=== PATIENT | male | born 1970 | race African-American/Black ===

== ENCOUNTER 2017-05-01 08:50 | Inpatient (IN) | payer MEDICAID, OTHER ==
[~2017-05-01] VITALS: Ht 170.2 cm; Wt 69.4 kg
[2017-05-01] MEDS ORDERED: PANTOPRAZOLE SODIUM 40 MG/VIAL IV STA (10:10)
[2017-05-01] MEDS ORDERED: SODIUM CHLORIDE 0.9% 1,000 ML IV ONE (10:10)
[2017-05-01] MEDS ORDERED: PANTOPRAZOLE 80 MG in SODIUM CHLORIDE 0.9% 100 ML IV STA (10:10)
[2017-05-01 10:41] LABS: BASOPHILS % 0.2 % (0.0-2.0); EOSINOPHILS % 1.7 % (0.0-5.0); HEMATOCRIT. 43.9 % (42.0-52.0); HEMOGLOBIN. 14.7 g/dL (14.0-18.0); MEAN CORPUSCULAR HEMOGLOBIN 28.7 pg (28.0-32.0); MEAN PLATELET VOLUME 9.3 fl (7.4-10.4); MONOCYTES % 10.8 % (2.0-8.0); NEUTROPHILS % 55.3 % (40.0-76.0); PLATELET 304 x1000/uL (130-400); RED BLOOD CELL COUNT 5.11 mill/uL (4.7-6.1); RED CELL DISTRIBUTION WIDTH 13.2 % (11.6-14.6)
[2017-05-01 10:47] LABS: INR 1.1; PARTIAL THROMBOPLASTIN TIME 26.6 sec (23.4-31.0); PROTHROMBIN TIME 11.1 sec (9.4-11.6)
[2017-05-01 10:56] LABS: CHLORIDE 91 mEq/L (98-107); TROPONIN I < 0.02 ng/mL (0.00-0.04)
[2017-05-01] MEDS ORDERED: ACETAMINOPHEN 325MG TABLET PO PRN (11:45)
[2017-05-01] MEDS ORDERED: HYDROCODONE/ACETAMINOPHEN 5/325MG TABLET PO PRN (11:45)
[2017-05-01] MEDS ORDERED: ONDANSETRON HCL 4MG/2ML VIAL IV PRN (11:45)
[2017-05-01] MEDS ORDERED: IPRATROPIUM/ALBUTEROL 0.5-3(2.5)MG/3ML NEB INH PRN (11:45)
[2017-05-01] MEDS ORDERED: DIPHENHYDRAMINE 50MG/ML VIAL IV PRN (11:45)
[2017-05-01] MEDS ORDERED: CLONIDINE 0.1MG TABLET PO PRN (11:45)
[2017-05-01 12:15] VITALS: BP 155/99
[2017-05-01 16:08] VITALS: BP 120/85
[2017-05-01 19:23] LABS: HEMATOCRIT 39.6 % (42.0-52.0)
[2017-05-01 20:00] VITALS: BP 128/62
[2017-05-01 22:00] VITALS: BP 118/62
[2017-05-02] VITALS: BP 126/64
[2017-05-02 02:00] VITALS: BP 130/72
[2017-05-02 04:00] VITALS: BP 142/64
[2017-05-02 06:00] VITALS: BP 152/68
[2017-05-02 07:06] LABS: BASOPHILS % 1.5 % (0.0-2.0); EOSINOPHILS % 2.4 % (0.0-5.0); HEMATOCRIT. 39.9 % (42.0-52.0); HEMOGLOBIN. 13.3 g/dL (14.0-18.0); LYMPHOCYTES % 43.3 % (20.0-50.0); MEAN CORPUSCULAR HEMOGLOBIN 28.5 pg (28.0-32.0); MEAN CORPUSCULAR VOLUME 85.6 fL (80.0-94.0); MONOCYTES % 11.8 % (2.0-8.0); PLATELET 257 x1000/uL (130-400); RED BLOOD CELL COUNT 4.66 mill/uL (4.7-6.1); RED CELL DISTRIBUTION WIDTH 13.3 % (11.6-14.6)
[2017-05-02 08:11] VITALS: BP 130/81
[2017-05-02 08:18] LABS: CHLORIDE 96 mEq/L (98-107)
[2017-05-02 08:28] LABS: HDL CHOLESTEROL 32 mg/dL (40-59); LDL CHOLESTEROL 119 mg/dL (5-100)
[2017-05-02] MEDS ORDERED: PANTOPRAZOLE SODIUM 40 MG/VIAL IV SCH (09:00)
[2017-05-02 12:31] VITALS: BP 139/91
== END 2017-05-02 14:00 | disposition home or self-care (01) | DRG 253 ==
LOC: ER 09:48 → ENRESERV 11:43 → 6WST 12:08
PROVIDERS: ADMIT Internal Medicine; ATTEND Internal Medicine
DX: K92.2 Gastrointestinal hemorrhage, unspecified (principal); E87.1 Hypo-osmolality and hyponatremia; I10 Essential (primary) hypertension; K92.0 Hematemesis; F32.9 Major depressive disorder, single episode, unspecified; F17.210 Nicotine dependence, cigarettes, uncomplicated; F12.90 Cannabis use, unspecified, uncomplicated; F43.10 Post-traumatic stress disorder, unspecified; K59.00 Constipation, unspecified
CPT/HCPCS: 36415; 71045; 74176; 80053; 80061; 83690; 84484; 85014; 85018; 85025; 85610; 85730; 86850; 86900; 93005; 96365; 96375; 99285; C9113; J7030; J7050

== ENCOUNTER 2021-10-18 02:23 | Inpatient (IN) | payer OTHER ==
[~2021-10-18] VITALS: Ht 170.2 cm; Wt 63.1 kg
[2021-10-18 08:47] LABS: BASOPHILS % 0.9 % (0.0-2.0); EOSINOPHILS % 0.8 % (0.0-5.0); HEMOGLOBIN. 15.8 g/dL (14.0-18.0); LYMPHOCYTES % 25.7 % (20.0-50.0); MEAN CORPUSCULAR VOLUME 87.9 fL (80.0-94.0); MEAN PLATELET VOLUME 8.3 fl (7.4-10.4); MONOCYTES % 11.4 % (2.0-8.0); NEUTROPHILS % 61.2 % (40.0-76.0); PLATELET 271 x1000/uL (130-400); RED BLOOD CELL COUNT 5.47 mill/uL (4.7-6.1); RED CELL DISTRIBUTION WIDTH 13.6 % (11.6-14.6)
[2021-10-18 08:55] LABS: CHLORIDE 92 mEq/L (98-107)
[2021-10-18 08:57] LABS: PROTHROMBIN TIME 10.9 sec (9.6-11.0)
[2021-10-18] MEDS ORDERED: PANTOPRAZOLE SODIUM 40 MG/VIAL IV STA (10:15)
[2021-10-18] MEDS ORDERED: ACETAMINOPHEN 325MG TABLET PO PRN (13:30)
[2021-10-18] MEDS ORDERED: DIPHENHYDRAMINE 50MG/ML VIAL IV PRN (13:30)
[2021-10-18] MEDS ORDERED: CLONIDINE 0.1MG TABLET PO PRN (13:30)
[2021-10-18] MEDS ORDERED: IPRATROPIUM/ALBUTEROL 0.5-3(2.5)MG/3ML NEB HHN PRN (13:30)
[2021-10-18] MEDS ORDERED: ONDANSETRON HCL 4MG/2ML INJ IV PRN (13:30)
[2021-10-18 14:36] VITALS: BP 147/96
[2021-10-18] MEDS: SODIUM CHLORIDE 0.9% 1,000 ML IV SCH ×2 (14:54→22:04)
[2021-10-18 15:47] VITALS: BP 140/72
[2021-10-18 19:02] LABS: HEMATOCRIT 44.7 % (42.0-52.0); HEMOGLOBIN 14.6 g/dL (14.0-18.0)
[2021-10-18 19:37] LABS: FOLIC ACID (FOLATE) SERUM 17.6 ng/mL (>5.38)
[2021-10-18 20:00] VITALS: BP 104/80
[2021-10-18 20:09] LABS: TOTAL IRON BINDING CAPACITY 380 ug/dL (250-450)
[2021-10-18] MEDS: PANTOPRAZOLE SODIUM 40 MG/VIAL IV SCH (22:03)
[2021-10-18 22:53] LABS: HEMATOCRIT 44.4 % (42.0-52.0); HEMOGLOBIN 14.4 g/dL (14.0-18.0)
[2021-10-19] VITALS: BP 108/76
[2021-10-19 04:00] VITALS: BP 134/98
[2021-10-19 06:49] LABS: BASOPHILS % 1.3 % (0.0-2.0); EOSINOPHILS % 2.4 % (0.0-5.0); HEMATOCRIT. 40.4 % (42.0-52.0); HEMOGLOBIN. 13.5 g/dL (14.0-18.0); MEAN CORPUSCULAR HEMOGLOBIN 29.2 pg (28.0-32.0); MEAN CORPUSCULAR VOLUME 87.5 fL (80.0-94.0); MEAN PLATELET VOLUME 8.9 fl (7.4-10.4); MONOCYTES % 11.9 % (2.0-8.0); NEUTROPHILS % 37.4 % (40.0-76.0); PLATELET 238 x1000/uL (130-400); RED BLOOD CELL COUNT 4.62 mill/uL (4.7-6.1); RED CELL DISTRIBUTION WIDTH 13.4 % (11.6-14.6)
[2021-10-19 06:59] LABS: CHLORIDE 97 mEq/L (98-107)
[2021-10-19 08:00] VITALS: BP 139/98
[2021-10-19] MEDS: PANTOPRAZOLE SODIUM 40 MG/VIAL IV SCH (08:56)
[2021-10-19] MEDS ORDERED: PANTOPRAZOLE SODIUM 40 MG/VIAL IV SCH (09:00)
[2021-10-19 11:16] LABS: HEMATOCRIT 40.8 % (42.0-52.0); HEMOGLOBIN 13.2 g/dL (14.0-18.0)
[2021-10-19 12:00] VITALS: BP 130/85
[2021-10-19 16:00] VITALS: BP 114/76
[2021-10-19] MEDS: SODIUM CHLORIDE 0.9% 1,000 ML IV SCH (16:10)
[2021-10-19] MEDS ORDERED: FERROUS SULFATE 325MG TABLET PO SCH (17:40)
[2021-10-19] MEDS ORDERED: ASCORBIC ACID 500 MG TABLET PO SCH (17:40)
[2021-10-19 19:24] VITALS: BP 114/76
== END 2021-10-19 19:37 | disposition home or self-care (01) | DRG 249 ==
LOC: ER 02:23 → 8WST 12:31 → ENRESERV 12:49 → 8WST 14:26
PROVIDERS: ADMIT Internal Medicine; ATTEND Internal Medicine
DX: K52.9 Noninfective gastroenteritis and colitis, unspecified (principal); K22.6 Gastro-esophageal laceration-hemorrhage syndrome; K27.0 Acute peptic ulcer, site unspecified, with hemorrhage; K29.01 Acute gastritis with bleeding; F17.210 Nicotine dependence, cigarettes, uncomplicated; Z87.11 Personal history of peptic ulcer disease; K59.00 Constipation, unspecified; R63.0 Anorexia; Z68.21 Body mass index [BMI] 21.0-21.9, adult
CPT/HCPCS: 36415; 74176; 80053; 82607; 82728; 82746; 83540; 83550; 85014; 85018; 85025; 85044; 86850; 86900; 93005; 93970; 97161; 99285; C9113